=== PATIENT | male | born 1955 | race Two or more races ===

== ENCOUNTER → 2025-02-15 | Outpatient (CLI) | payer OTHER, SELFPAY ==
--- NOTE | 2025-02-15 12:01 | XR_ITS ---
EXAMINATION: Cervical spine, 5 views Technique: Cervical spine AP, AP odontoid, lateral, bilateral obliques, 5 views Exam date and time: February 15, 2025, 1217 hours INDICATIONS: Neck pain beginning 2 months ago FINDINGS: Moderate degenerative disc disease C5-C6, C6-C7 with moderate to advanced bilateral neural foraminal stenosis at these levels No cervical fracture Intact odontoid The C7 vertebral body is not diagnostically visualized on this examination IMPRESSION: Moderate degenerative disc disease C5-C6, C6-C7 with moderate to advanced bilateral neural foraminal stenosis at these levels Recommend repeat swimmer's lateral view to diagnostically assess C7
--- NOTE | 2025-02-15 12:02 | XR_ITS ---
Examination: Knee bilateral, 6 views Technique: Knee AP, lateral, oblique each knee total 6 views Date and time of exam: February 15, 2025 at 1217 hours INDICATIONS: Bilateral knee pain beginning 2 months ago. FINDINGS: Moderate osteopenia. 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
== END | disposition home or self-care (01) ==
LOC: SDIM 11:50
PROVIDERS: PCP Nurse Practitioner Family; Referring Provider Nurse Practitioner Family; Visit Provider Nurse Practitioner Family
DX: M50.322 Other cervical disc degeneration at C5-C6 level (principal); M48.02 Spinal stenosis, cervical region; M17.0 Bilateral primary osteoarthritis of knee
CPT/HCPCS: 72050; 73562